=== PATIENT | female | born 1955 | race Caucasian/White ===

== ENCOUNTER 2025-02-25 12:47 | Outpatient (OUT) | payer MEDICAID, SELFPAY ==
--- OUTSIDE RECORDS SUMMARY | 2025-02-25 12:53 | XMS_ITS | Clinical Summary ---
Author Organization [facility] Address [address] [place] [id number] Care Team Providers Care Income Tax Preparer Name Role Phone Yovani Vaughan MD Primary Care Provider [phone] Allergies Active Allergy Reactions Criticality Noted Date Comments Iodine Unknown 11/17/2015 Latex, Natural Rubber Unknown 11/17/2015 Morphine Unknown 11/17/2015 Nsaids (Non-Steroidal Anti-I nflammatory Drug) Unknown 11/17/2015 Sulfa (Sulfonamide Antibiotics) Unknown 11/07 Medications bisacodyl (DULCOLAX) 10 mg supp 10 mg by RECTAL route once daily as needed. Active diphenhydrAMINE (BENADRYL) 25 mg tablet Take 25 mg by mouth every 6 hours as needed. Active LORazepam (ATIVAN) 0.5 mg tab Take by mouth three times daily as needed. Active oxyCODONE 30 mg Tb12 Take 30 mg by mouth. Active polyethylene glycol 3350 (MIRALAX, GLYCOLAX) 17 gram packet Take 17 g by mouth once daily. Active promethazine (PHENERGAN) 25 mg tablet Take 25 mg by mouth every 6 hours as needed. Active GUAIFENESIN/DEX TROMETHORPHAN (ROBITUSSIN-DM ORAL) Take by mouth. Activ e LACTOBACILLUS ACIDOPHILUS (ACIDOPHILUS ORAL) Take by mouth. Activ e allopurinol (ZYLOPRIM) 200 mg tablet [place] [facility] Take 200 mg by mouth once daily. Active interferon beta-1a, albumin, (AVONEX) 30 mcg injection Inject 30 mcg intramuscularly once each week. Active baclofen (LIORESAL) 10 mg tablet Take 10 mg by mouth three times daily. Active cefUROXime (CEFTIN) 500 mg tablet Take 500 mg by mouth twice daily. Active docusate sodium (COLACE) 100 mg capsule Take 100 mg by mouth twice daily. Active DULoxetine (CYMBALTA) 60 mg capsule Take 60 mg by mouth once daily. Active fentaNYL (DURAGESIC) 75 mcg/hr Apply 1 Patch as directed every 72 hours. Active ferrous sulfate 325 mg (65 mg iron) tablet Take 325 mg by mouth daily with breakfast. Active fluticasone (FLONASE) 50 mcg/actuation nasal spray Use 1 [place] in each nostril once daily. Activ e gabapentin (NEURONTIN) 100 mg capsule Take 100 mg by mouth three times daily. Active sitaGLIPtin (JANUVIA) 25 mg tablet Take 25 mg by mouth once daily. Active LACTULOSE, FOR ENCEPHALOPATHY, 10 G/15 ML ORAL SOLN Active levETIRAcetam (KEPPRA) 250 mg tablet Take 250 mg by mouth twice daily. Active metoprolol succinate ER (TOPROL XL) 25 mg 24 hr tablet Take 25 mg by mouth once daily. Active omeprazole (PRILOSEC) 20 mg capsule Take 20 mg by mouth once daily. Active OXcarbazepine (TRILEPTAL) 150 mg tablet Take 150 mg by mouth twice daily. Active POTASSIUM CHLORIDE ORAL Take by mouth. A ctive primidone (MYSOLINE) 50 mg tablet Take 50 mg by mouth four times daily. Active propafenone SR (RYTHMOL SR) 325 mg 12 hr capsule Take 325 mg by mouth twice daily. Active B COMPLEX & C NO.20/FOLIC ACID (NEPHROCAPS ORAL) Take by mouth. Activ e simvastatin (ZOCOR) 10 mg tablet Take 10 mg by mouth daily at bedtime. Active torsemide (DEMADEX) 20 mg tablet Take 20 mg by mouth once daily. Active traZODone (DESYREL) 50 mg tablet Take 50 mg by mouth daily at bedtime. Active ergocalciferol, vitamin D2, (DRISDOL) 50,000 unit capsule Take 50,000 Units by mouth once each week. Active rivaroxaban (XARELTO) 20 mg tablet Take 20 mg by mouth daily with dinner. Active albuterol (PROVENTIL) 2.5 mg /3 mL (0.083 %) nebulizer solution Use 2.5 mg via nebulizer. Active INSULIN GLARGINE,HUM.RE C.ANLOG (LANTUS SUBCUTANEOUS) Inject subcutaneously. 58 units subq every morning and at bedtime Active INSULIN ASPART (NOVOLOG SUBCUTANEOUS) Inject subcutaneously. Sliding scale with meals for blood sugar Active DEXTRAN 70/HYPROMELLOSE (ARTIFICIAL TEARS, PF, OPHTHALMIC) Use in eyes. Activ e guaiFENesin-dex tromethorphan (ROBITUSSIN DM) 100-10 mg/5 mL syrup Take 5 mL by mouth three times daily as needed. Active benzocaine-ment hol (CEPACOL) 15-3.6 mg lozg Use 1 Lozenge as instructed every 2 hours as needed. Active diltiazem CD (CARDIZEM CD, CARTIA XT) 240 mg 24 hr capsule Take 240 mg by mouth once daily. Active lurasidone (LATUDA) 80 mg tablet Take by mouth. Activ e linaclotide 145 mcg cap Take by mouth. Activ e lactulose (DUPHALAC, CONSTULOSE) 20 gram/30 mL solution Take 20 g by mouth three times daily. Active white petrolatum-mine ral oil (EUCERIN) cream Apply to affected area as needed. Active fluocinonide (LIDEX) 0.05 % ointment Apply to affected area twice daily. Active lidocaine-prilo janice (EMLA) cream Apply to affected area as needed. Active Menthol-Zinc Oxide (CALMOSEPTINE) 0.44-20.6 % Apply to affected area. Active tolnaftate (TINACTIN) 1 % cream Apply to affected area twice daily. Active NEOMYCIN LEE/BACITRAC ZN/POLY (TRIPLE ANTIBIOTIC TOPICAL) Apply to affected area. Active Active Problems Problem Noted Date Diagnosed Date Secondary polycythemia 11/22/2015 Polycythemia 11/22/2015 Social History Tobacco Use Types Packs/Day Years Used Date Smoking Tobacco: Never Smokeless Tobacco: Never Alcohol Use Standard Drinks/Week Comments No 0 (1 standard drink = 0.6 oz pur e alcohol) Comments No Sex and Gender Information Value Date Recorded Sex Assigned at Not on file Legal Sex Female 10:29 AM EST Gender Identity Not on file Sexual Orientation Not on file Last Filed Vital Signs Vital Sign Reading Time Taken Comments Blood Pressure 104/68 11/22/2015 3:21 PM EDT Pulse 74 11/22/2015 3:21 PM EDT Temperature 37.3 C (99.2 F) 11/22/2015 3:21 PM EDT Respiratory Rate 18 11/22/2015 3:21 PM EDT Oxygen Saturation - - Inhaled Oxygen Concentration - - Weight - - Height - - Body Mass Index - - Plan of Treatment Health Maintenance Due Date Last Done Comments Anxiety Screening 1971 Depression Screening 1971 Hepatitis C Screening 1971 DTaP,Tdap,Td Vaccine (1 - Tdap) [address] Colonography 1998 Cologuard (FIT-DNA) 1998 Colonoscopy 1998 Colorectal Cancer Screening 1998 Fecal Occult Blood 1998 Lipid Screening 1998 Sigmoidoscopy 1998 Pneumococcal Vaccine: 50+ (1 of 1 - PCV) 2003 Shingrix Vaccine (1 of 2) 2003 Diabetes Screening 04/08/2017 04/08/2014 Bone Density Screening 2018 Advance Directive Discussion 06/09/2024 Influenza Vaccine (#1) 2025 RSV Vaccine (1 - 1-dose 75+ series) 2028 Procedures Procedure Name Priority Date/Time Associated Diagnosis Comments HEMOGLOBIN A1C Routine 04/08/2014 4:16 PM EDT Anemia, unspecified from Last 3 Months or Most Recently Relevant to Health Maintenance Results * (ABNORMAL) HGB A1C (04/08/2014 4:16 PM EDT) Hemoglobin A1C 9.4(H) 4.0 - 6.0 % [facility] Comment: [place] Diabetes Association guidelines indicate that patients with HgbA1c in the range 5.7-6.4% are at increased risk for development of diabetes, and intervention by lifestyle modification may be beneficial. HgbA1c greater or equal to 6.5% is considered diagnostic of diabetes. Estimated Average Glucose 223 mg/dL [facility] Comment: eAG: (Estimated average glucose) is a calculated value from HgbA1c and is distribution sales representative of the average blood glucose level in the last 2-3 month period. Blood specimen (specimen) BLOOD SPECIMEN / Unknown 04/08/2014 4:16 PM EDT 04/08/2014 4:18 PM EDT us Charles D Virgieapua PA-C LABORATORY Final Resul t [facility] [id number] [place] [address] from Last 3 Months or Most Recently Relevant to Health Maintenance Insurance MEDICAID [place] Care Teams Income Tax Preparer Relationship Specialty Start Date End Date Yovani Vaughan MD PCP - General Family Medicine 03/11/14
--- OUTSIDE RECORDS SUMMARY | 2025-02-25 12:53 | XMS_ITS | Clinical Summary ---
Author Organization [id number] [address] [place] [address] Care Team Providers Care Cake Puller Name Role Phone Mendoza Zazueta MD Primary Care Provider [phone] Allergies Active Allergy Reactions Criticality Noted Date Comments Beef Containing Products 05/19/2017 Dihydroergotamine 04/10/2017 Iodine 05/14/2014 Latex Rash Low 05/14/2014 Morphine 09/04/2020 Nsaids (Non-Steroidal Anti-Inflammatory Drug) 05/16/2017 Opioids - Morphine Analogues Anxiety,GI Disturbance,Other (See Comments),Shortnes s Of Breath High 05/13/2014 Pt says she also gets nightmares, hallucinations, and gets loopy . Pantoprazole 04/10/2017 Butorphanol Tartrate 04/10/2017 Sulfasalazine 05/14/2014 Tolmetin 09/13/2015 Medications docusate sodium (COLACE) 100 mg capsuleIndicati ons:constipatio n Take 1 capsule (100 mg total) by mouth in the morning. Indications: constipation. Active dilTIAZem LA (CARDIZEM LA) 240 mg 24 hr tablet Take 1 tablet (240 mg total) by mouth in the morning. Active simethicone (MYLICON) 80 mg chewable tablet Chew 1 tablet (80 mg total) and swallow every 6 (six) hours as needed for flatulence (for gas pain). Active insulin glargine (LANTUS) 100 unit/mL injectionIndica tions:type 2 diabetes mellitus Inject 0.48 mL (48 Units total) under the skin in the morning. Indications: type 2 diabetes mellitus. Active rivaroxaban (XARELTO) 20 mg tablet tablet Take 1 tablet (20 mg total) by mouth once daily at bedtime. Active simvastatin (ZOCOR) 10 mg tablet Take 1 tablet (10 mg total) by mouth nightly. Active levETIRAcetam (KEPPRA) 250 mg tablet Take 2 tablets (500 mg total) by mouth in the morning. Active allopurinol (ZYLOPRIM) 100 mg tablet Take 2 tablets (200 mg total) by mouth in the morning. Active OXcarbazepine (TRILEPTAL) 150 mg tablet Take 1 tablet (150 mg total) by mouth in the morning. Active baclofen (LIORESAL) 10 mg tablet Take 1 tablet (10 mg total) by mouth nightly. Active lactulose (CHRONULAC) 10 gram/15 mL solution Take 30 mL (20 g total) by mouth in the morning. Active lurasidone (LATUDA) 80 mg tablet Take 40 mg by mouth in the morning. Active polyethylene glycol (GLYCOLAX) 17 gram/dose powderIndicatio ns:constipation Take 17 g by mouth in the morning and 17 g before bedtime. Indications: constipation. Active primidone (MYSOLINE) 50 mg tablet Take 2 tablets (100 mg total) by mouth 5 (five) times a day. Active propafenone SR (RYTHMOL SR) 325 mg 12 hr capsule Take 1 capsule (325 mg total) by mouth in the morning and 1 capsule (325 mg total) before bedtime. Active diphenhydrAMINE (SOMINEX) 25 mg tablet Take 1 tablet (25 mg total) by mouth every 6 (six) hours as needed for itching. Active bisacodyl (BISCOLAX) 10 mg suppository Insert 1 suppository (10 mg total) into the rectum as needed for constipation. Active benzocaine-ment hol (CEPACOL SORE THROAT) 15-2.6 mg lozenge Dissolve 1 lozenge in the mouth every 2 (two) hours as needed. Active promethazine (PHENERGAN) 12.5 mg tablet Take 1 tablet (12.5 mg total) by mouth every 4 (four) hours as needed for nausea or vomiting. Active dextran 70/hypromellose (ARTIFICIAL TEARS,[id number] PRO, OPHT) Instill to eye. Act catar[place] interferon beta-1a (AVONEX) 30 mcg/0.5 mL pen injector Inject 30 mcg into the appropriate muscle once a week. On Fri Active calcitriol (ROCALTROL) 0.25 MCG capsule Take 1 capsule (0.25 mcg total) by mouth. TAKING 1 CAPSULE THREE TIMES A WEEK (Fri and Fri) Active ALPRAZolam (XANAX) 0.25 mg tablet Take 1 tablet (0.25 mg total) by mouth in the morning. Active hypromellose (GENTEAL MILD OPHT) Instill 1 drop to eye 3 (three) times a day. Active cholecalciferol , vitamin D3, (VITAMIN D3 ORAL) Take 1,000 Unit by mouth once a week. On Fri, Fri, Fri Active acetaminophen (TYLENOL) 325 mg tabletIndicatio ns:fever Take 2 tablets (650 mg total) by mouth every 6 (six) hours as needed for fever (Temp greater than 101F) Indications: fever. Active albuterol (PROVENTIL,VENT LASHELL) 2.5 mg /3 mL (0.083 %) nebulizer solutionIndicat ions:chronic obstructive pulmonary disease Inhale 3 mL (2.5 mg total) by nebulization every 4 (four) hours as needed for wheezing or shortness of breath Indications: chronic obstructive pulmonary disease. Active amantadine (SYMMETREL) 100 mg capsule Take 1 capsule (100 mg total) by mouth in the morning and 1 capsule (100 mg total) before bedtime. Dx Dyskinesia. Active amitriptyline (ELAVIL) 25 mg tabletIndicatio ns:anxiety,depr ession,insomnia Take 1 tablet (25 mg total) by mouth nightly Indications: anxious, depression, difficulty sleeping. Active amLODIPine (NORVASC) 5 mg tabletIndicatio ns:hypertension Take 2 tablets (10 mg total) by mouth in the morning. Indications: high blood pressure. Active baclofen (LIORESAL) 10 mg tablet Take 0.5 tablets (5 mg total) by mouth in the morning. Active calcium carbonate (OS-LAKEISHA) 500 mg elemental (1,250 mg) chewable tablet Chew 2 tablets (1,000 mg total) and swallow every 6 (six) hours as needed for indigestion. Active carbidopa-levod opa (SINEMET) 25-100 mg per tablet Take 1 tablet by mouth in the morning and 1 tablet at noon and 1 tablet in the evening and 1 tablet before bedtime. For Multiple Scerlosis . Active DICLOFENAC SODIUM TOP Apply 1 Squirt topically every 12 (twelve) hours as needed (pain). Active diphenhydrAMINE (BENADRYL) 50 mg capsule Take 1 capsule (50 mg total) by mouth once daily at bedtime. May continue prn order Active mineral oil (FLEET) enemaIndication s:constipation Insert 133 mL into the rectum daily as needed for constipation Indications: constipation. Insert application rectally every 24 hours as needed for constipation day 5 No bowel movement after glycerin rectal suppository, give fleet enema rectally times 1 dose. Notify MD if fleet enema not effective Active glycerin, laxative, adult, suppositoryIndi cations:constip ation Insert 1 suppository into the rectum as needed (constipation) Indications: constipation. Insert 1 unit rectally every 24 hours as needed for constipation if no results from Milk of mag Active guaiFENesin (ROBITUSSIN) 100 mg/5 mL syrupIndication s:cough Take 20 mL (400 mg total) by mouth every 6 (six) hours as needed for cough Indications: cough. Active hydrALAZINE (APRESOLINE) 25 mg tablet Take 1 tablet (25 mg total) by mouth every 8 (eight) hours as needed (SBP >150 or DBP >90). Active insulin glargine (LANTUS) 100 unit/mL injectionIndica tions:type 2 diabetes mellitus Inject 0.2 mL (20 Units total) under the skin nightly Indications: type 2 diabetes mellitus. Active lidocaine (XYLOCAINE) 2 % jelly Apply 1 Application topically every 4 (four) hours as needed for pain. Apply to tongue topically every 4 hrs prn for sores on tongue Active magnesium hydroxide 400 mg/5 mL suspensionIndic ations:constipa tion Take 30 mL by mouth daily as needed (for constipation) Indications: constipation. Give 30cc by mouth every 24 hours as needed for constipation Day 3 without BM Active coal tar (NEUTROGENA T-GEL) 0.5 % shampoo Apply 1 Application topically once a week. Apply to scalp topically every night custodian on Mon and Thur for itchy scalp Active pimavanserin (NUPLAZID) 34 mg capsule Take 1 capsule (34 mg total) by mouth every other day. Active nystatin (MYCOSTATIN) powder Apply 1 Application topically as needed (axilla, groin, folds). Active OXcarbazepine (TRILEPTAL) 150 mg tablet Take 2 tablets (300 mg total) by mouth once daily at bedtime. Active chlorhexidine (PERIDEX) 0.12 % solution Apply 15 mL to the mouth or throat 3 (three) times a day as needed for wound care. Swish and spit Active tiZANidine (ZANAFLEX) 4 mg tablet Take 1 tablet (4 mg total) by mouth every 8 (eight) hours as needed for muscle spasms. Active traMADoL (ULTRAM) 50 mg tablet Take 2 tablets (100 mg total) by mouth every 6 (six) hours. Active triamcinolone (KENALOG) 0.5 % cream Apply 1 Application topically in the morning and 1 Application before bedtime. Apply to affected area topically as needed for rash bid. Active VITAMIN B COMPLEX ORAL Take 1 tablet by mouth in the morning. Active ALPRAZolam (XANAX) 0.5 mg tablet Take 1 tablet (0.5 mg total) by mouth nightly. Active sennosides-docu sate sodium (SENOKOT-S) 8.6-50 mg Take 1 tablet by mouth every 12 (twelve) hours as needed for constipation. Active Active Problems Problem Noted Date Diagnosed Date Seizure 11/03/2024 Small bowel obstruction 11/02/2024 Hypertension 07/03/2017 SOB (shortness of breath) 07/03/2017 Generalized abdominal pain 05/08/2017 Morbid obesity due to excess calories 04/10/2017 Diabetes Atrial fibrillation COPD (chronic obstructive pulmonary disease) Obesity (BMI 30.0-34.9) Resolved Problems Problem Noted Date Diagnosed Date Resolved Date Incisional hernia, without o bstruction or gangrene 04/10/2017 05/08/2017 Hernia of anterior abdominal wall 04/10/2017 05/08/2017 Family History Medical History Relation Name Comments Cancer Daughter OVARIAN Diabetes Father Diabetes Mother Anesthesia problems Neg Hx Relation Name Status Comments Daughter Father Mother Social History Tobacco Use Types Packs/Day Years Used Date Smoking Tobacco: Never Smokeless Tobacco: Never Tobacco Cessation:Counseling Given: Not Answered Alcohol Use Standard Drinks/Week Comments No 0 (1 standard drink = 0.6 oz pur e alcohol) [facility] Utilities Answer Date Recorded In the past 12 months has th e electric, gas, oil, or water company threatened to shut off services in your home? No 11/02/2024 PRAPARE - Transportation Answer Date Re corded In the past 12 months, has l ack of transportation kept you from medical appointments or from getting medications? No 10/08 In the past 12 months, has l ack of transportation kept you from meetings, work, or from getting things needed for daily living? No 11/02/2024 Housing Instability Answer Date Recorde d Are you worried or concerned that in the next two months you may not have stable housing that you own, rent or stay in as a part of a household? No 11/02/2024 Childcare Answer Date Recorded Childcare Unknown 11/09/2018 Employment Answer Date Recorded Employment Unknown 11/09/2018 Hunger Screening Answer Date Recorded Within the past 12 months we worried whether our food would run out before we got money to buy more. Patient unable to answer 11/03/2024 Within the past 12 months th e food we bought just didn't last and we didn't have money to get more. Patient unable to answer 11/03/2024 Purpose - Life Answer Date Recorded Purpose and direction in life Unknown Comments No Sex and Gender Information Value Date Recorded Sex Assigned at Not on file Legal Sex Female 11:27 AM EDT Gender Identity Not on file Sexual Orientation Not on file Last Filed Vital Signs Vital Sign Reading Time Taken Comments Blood Pressure 159/89 11/06/2024 12:12 PM EDT Pulse 106 11/06/2024 12:12 PM EDT Temperature 36.8 C (98.2 F) 11/06/2024 12:00 PM EDT Respiratory Rate 16 11/06/2024 12:1 2 PM EDT Oxygen Saturation 93% 11/06/2024 12: 12 PM EDT Inhaled Oxygen Concentration - - Weight 86.1 kg (189 lb 14.4 oz) 11/05/2024 5:00 AM EDT Height 167.6 cm (5' 6 ) 11/02/2024 2:50 PM EDT Body Mass Index 30.65 11/02/2024 2:50 PM EDT Plan of Treatment Health Maintenance Due Date Last Done Comments Diabetic Ophthalmology Exam 1955 Statin Use: Diabetic 1955 Depression Screening 1965 Adult BMI Follow Up Plan 1971 Diabetic Foot Exam 1971 DTaP,Tdap and Td Vaccines (1 - Tdap) 1972 Zoster (Shingles) Vaccine (1 of 2) 2003 Fall Risk Screening 2018 Colonoscopy 05/23/2020 05/23/2017 COVID-19 Vaccine (6 - 2024-2 6 season) 2025 03/21/2022, 12/18/2021, 03/28/2021, Additional history exists Influenza Vaccine 02/07/2025 03/10/2012, 03/22/2009 Tobacco Screening 11/04/2025 11/04/2024 Adult BMI Screening 11/05/2025 11/05/2024 Goals Goal Patient Goal Type Associated Problems Recent Progress Patient-Stated? Author return to [facility] Yes Belkis Nagy LSW Note: Evaluation of progress towards goal: under assessment, has NG Medical Devices Not on file Procedures Procedure Name Priority Date/Time Associated Diagnosis Comments COLONOSCOPY 05/23/2017 11:45 AM EST from Last 3 Months or Most Recently Relevant to Health Maintenance Results * Colonoscopy (05/23/2017 11:45 AM EST) 05/23/2017 11:4 5 AM EST [facility] CARDIOVASCULAR - 05/23/2017 1:02 PM EST [facility] Patient Name: Judy Murray Procedure Date: 05/23/2017 11:45 AM Date of : 1955 Admit Type: Outpatient Age: 62 Room: [place] [address] Gender: Female Note Status: Finalized Attending MD: Jamison Quick MD Procedure: Colonoscopy Indications: See Dictation in [facility] Providers: Jamison Quick MD Referring MD: Requesting Provider: Medicines: See Dictation in [facility] Complications: See Dictation in [facility] Procedure: After I obtained informed consent, the scope was passed under direct vision. Throughout the procedure, the patient's blood pressure, pulse, and oxygen saturations were monitored continuously. The Colonoscope was introduced through the anus and advanced to the terminal ileum, with identification of the appendiceal orifice and IC valve. See Dictation in [facility] The quality of the bowel preparation was inadequate. Findings: See Dictation in [facility] Recommendation: - See Dictation in [facility] - Repeat colonoscopy see dictation in [facility] see dictation in [facility]. MD Jamison Noyola MD 05/23/2017 1:02:04 PM This report has been signed electronically. Number of Addenda: 0 Note Initiated On: 05/23/2017 11:45 AM Procedure Note Jamison Quick MD - 05/23/2017 [facility] Patient Name: Judy Murray Procedure Date: 05/23/2017 11:45 AM Date of : 1955 Admit Type: Outpatient Age: 62 Room: [place] [address] Gender: Female Note Status: Finalized Attending MD: Jamison Quick MD Procedure: Colonoscopy Indications: See Dictation in [facility] Providers: Jamison Quick MD Referring MD: Requesting Provider: Medicines: See Dictation in [facility] Complications: See Dictation in [facility] Procedure: After I obtained informed consent, the scope was passed under direct vision. Throughoutthe procedure, the patient's blood pressure,pulse, and oxygen saturations were monitored continuously. The Colonoscope was introduced through the anus and advanced to theterminal ileum, with identification of theappendiceal orifice and IC valve. [facility] wasinadequate. Findings: See Dictation in [facility] Recommendation: - See Dictation in [facility] - [facility]. MD Jamison Noyola MD 05/23/2017 1:02:04 PM This report has been signed electronically. Number of Addenda: 0 Note Initiated On: 05/23/2017 11:45 AM Jamison Quick MD GI PROCEDURE ORDERABLES Brynn l Result PM CARDIOVASCULAR from Last 3 Months or Most Recently Relevant to Health Maintenance Insurance MEDICAID [place] Advance Directives * Full Code (Latest Code Status on File) Date Activated Date Inactivated Comments 11/02/2024 2:54 PM 11/06/2024 5:59 PM Care Teams Cake Puller Relationship Specialty Start Date End Date Mendoza Zazueta MD [address] [facility] [address] [place] [address] PCP - General Internal Medicine 11/02/24
--- OUTSIDE RECORDS SUMMARY | 2025-02-25 12:53 | XMS_ITS | Encounter Summary ---
Author Organization [facility] Address [address] [place] [address] Care Team Providers Care Pricer Name Role Phone Reinaldo Zuniga MD Unavailable [phone] Encounter Details Date Type Department Care Team ([facility] Contact Info) Description 03/30/2024 Abstract [facility] [address] [facility] [address] [place] [address] Unallocated, Noms MD Javi [address] [place] [address] Social History Tobacco Use Types Packs/Day Years Used Date Smoking Tobacco: Never Smokeless Tobacco: Never Alcohol Use Standard Drinks/Week Comments Never 0 (1 standard drink = 0.6 oz pur e alcohol) Comments Unknown Sex and Gender Information Value Date Recorded Sex Assigned at Not on file Legal Sex Female 6:56 PM EDT Gender Identity Not on file Sexual Orientation Not on file documented as of this encounter Plan of Treatment Upcoming Encounters Date Type Department Care Team ([facility] Contact Info) Description 08/30/2025 10:00 AM EDT Office Visit [facility] [address] [place] [phone] Reinaldo Zuniga MD [address] [place] [address] documented as of this encounter Visit Diagnoses Not on filedocumented in this encounter Care Teams Pricer Relationship Specialty Start Date End Date Reinaldo Zuniga MD [address] [place] [address] PCP - FFS State [facility] 06/09/24 documented as of this encounter
--- OUTSIDE RECORDS SUMMARY | 2025-02-25 12:53 | XMS_ITS | Encounter Summary ---
Author Organization [facility] Address [address] [place] [address] Care Team Providers Care Paper Roll Machine Operator Name Role Phone Reinaldo Zuniga MD Unavailable [phone] Encounter Details Date Type Department Care Team ([facility] Contact Info) Description 02/26/2024 Orders Only [facility] [address] [place] [phone] Reinaldo Zuniga MD [address] [place] [address] Social History Tobacco Use Types Packs/Day Years [...] Upcoming Encounters Date Type Department Care Team ([facility] Contact Info) Description 08/30/2025 10:00 AM EDT Office Visit [facility] [address] [place] [phone] Reinaldo Zuniga MD [address], [address] [place] [address] documented as of this encounter Procedures Procedure Name Priority Date/Time Associated Diagnosis Comments GENERAL PATHOLOGY Routine 02/05/2024 10:09 AM EDT GENERAL PATHOLOGY Routine 02/05/2024 10:08 AM EDT PATHOLOGY REPORT Routine 02/05/2024 10:04 AM EDT PATHOLOGY REPORT Routine 02/05/2024 10:03 AM EDT PT AND PTT Routine 02/03/2024 9:34 AM EDT EQUAL MIX, PT / INR Routine 02/03/2024 9:34 AM EDT documented in this encounter Results * GENERAL PATHOLOGY (02/05/2024 10:09 AM EDT) Thony Rolon Satinder DO [facility] Final Resul t * GENERAL PATHOLOGY (02/05/2024 10:08 AM EDT) Thony Rajan DO [facility] Final Resul t * Pathology Report (02/05/2024 10:04 AM EDT) Other Thony Rajan DO LAB PATHOLOGY ORDERABLES Fi nal Result * Pathology Report (02/05/2024 10:03 AM EDT) Other Thony Rajan DO LAB PATHOLOGY ORDERABLES Fi nal Result * Pt and ptt (02/03/2024 9:34 AM EDT) Blood Venous blood specimen / Unknown us Reinaldo Zuniga MD LAB BLOOD ORDERABLES Final Re sult * Equal mix, PT / INR (02/03/2024 9:34 AM EDT) Blood Venous blood specimen / Unknown us Reinaldo Zuniga MD LAB BLOOD ORDERABLES Final Re sult documented in this encounter Visit Diagnoses Not on filedocumented in this encounter Care Teams Paper Roll Machine Operator Relationship Specialty Start Date End Date Reinaldo Zuniga MD [address] [place] [id number] PCP - FFS State [employer] 06/09/24 documented as of this encounter
--- OUTSIDE RECORDS SUMMARY | 2025-02-25 12:53 | XMS_ITS | Clinical Summary ---
Author Organization [facility] Address [address] [place] [address] Care Team Providers Care Press Tender Long Goods Name Role Phone Reinaldo Zuniga MD Unavailable [phone] Allergies Active Allergy Reactions Criticality Noted Date Comments Butorphanol 04/10/2017 Dihydroergotamine 04/10/2017 Iodinated Contrast Media Unknown 02/03/2024 Iodine Unknown 05/14/2014 Latex Rash,Unknown Low 05/14/2014 Morphine Unknown 11/17/2015 Nsaids Unknown 02/11/2024 Pantoprazole 04/10/2017 Sulfa Antibiotics Unknown 11/17/2015 Medications lurasidone (Latuda) 40 MG tablet Take 1 tablet by mouth in the morning. Take with meals. 4 Active allopurinol (Zyloprim) 100 MG tablet Take 1 tablet by mouth Daily 4 Active propafenone SR (Rythmol SR) 325 MG 12 hr capsule Take 1 capsule by mouth in the morning and 1 capsule before bedtime. 4 Active acetaminophen (Tylenol) 325 MG tablet Take 650 mg by mouth every 6 (six) hours if needed Active dilTIAZem CD (Cardizem CD) 240 MG 24 hr capsule Take 240 mg by mouth in the morning. 4 Active OXcarbazepine (Trileptal) 150 MG tablet Take 1 tablet by mouth in the morning and 1 tablet before bedtime. 1 in AM and 2 PM. 4 Active carbidopa-levo dopa (Sinemet) 25-100 MG tablet Take 1 tablet by mouth in the morning and 1 tablet at noon and 1 tablet in the evening and 1 tablet before bedtime. 4 Active ALPRAZolam (Xanax) 0.5 MG tablet Take 1 tablet by mouth 2 (two) times a day as needed for anxiety 4 Active levETIRAcetam (Keppra) 500 MG tablet Take 1 tablet by mouth in the morning and 1 tablet before bedtime. 4 Active promethazine (Phenergan) 12.5 MG tablet Take 12.5 mg by mouth every 6 (six) hours if needed Active hydrALAZINE (Apresoline) 10 MG tablet Take 1 tablet by mouth Daily 4 Active rivaroxaban (Xarelto) 20 MG tablet Take 1 tablet by mouth in the evening. Take with meals 4 Active simvastatin (Zocor) 10 MG tablet Take 1 tablet by mouth at bedtime 4 Active simethicone (Mylicon) 80 MG chewable tablet Chew 80 mg every 6 (six) hours if needed Active primidone (Mysoline) 50 MG tablet Take 1 tablet by mouth if needed 4 Active Lantus SoloStar 100 UNIT/ML pen Inject 20 Units under the skin at bedtime 4 Active albuterol (2.5 MG/3ML) 0.083% nebulizer solution Inhale 0.5 mL every 6 (six) hours if needed for shortness of breath or wheezing Active Docusate Sodium (DSS) 100 MG capsule Take 1 capsule by mouth Daily as needed 4 Active cholecalcifero l (Vitamin D-3) 25 MCG (1000 UT) capsule Take 1 capsule by mouth Daily Active tiZANidine (Zanaflex) 4 MG tablet Take 1 tablet by mouth every 8 (eight) hours if needed for muscle spasms Active amantadine (Symmetrel) 100 MG capsule Take 100 mg by mouth 1 (one) time each day Active ALPRAZolam (Xanax) 0.25 MG tabletIndicati ons:Anxiety Take 1 tablet (0.25 mg) by mouth Daily 30 tablet 5 Active ALPRAZolam (Xanax) 0.5 MG tabletIndicati ons:Anxiety Take 1 tablet (0.5 mg) by mouth at bedtime 30 tablet 5 Active Additional Information Patient not taking.Reported on 08/31/2024 ALPRAZolam (Xanax) 0.5 MG tabletIndicati ons:Anxiety Take 1 tablet (0.5 mg) by mouth at bedtime 30 tablet 3 5 03/29/20 25 Active ALPRAZolam (Xanax) 0.5 MG tabletIndicati ons:Anxiety Take 0.5 tablets (0.25 mg) by mouth Daily 30 tablet 1 5 03/29/20 25 Active traMADol (Ultram) 50 MG tabletIndicati ons:Chronic pain syndrome Take 2 tablets (100 mg) by mouth every 6 (six) hours 240 tablet 5 03/02/20 25 Active traMADol (Ultram) 50 MG tabletIndicati ons:Chronic pain syndrome Take 2 tablets (100 mg) by mouth every 6 (six) hours 240 tablet 5 02/01/20 25 Discontin ued(Reord er) Encounters Date Type Department Care Team Description 01/31/2025 [facility] [address] [facility] [address] [place] [phone] Elyse Riley, KENNY 01/03/2025 Telephone [facility] [address] [facility] [address] [place] [address] Elyse Riley, KENNY 12/12/2024 Telephone [facility] [address] [facility] [address] [place] [address] Elyse Riley, KENNY 11/29/2024 Telephone [facility] [address] [facility] [address] [place] [phone] Elyse Riley, BRANCH CONTROLLER from Last 3 Months Immunizations Immunization Administration Dates Next Due Influenza Whole 03/22/2009 Influenza, seasonal, injectable 03/10/2012 Family History Medical History Relation Name Comments Diabetes Mother Relation Name Status Comments Father Mother Social History Tobacco Use Types Packs/Day Years Used Date Smoking Tobacco: Never Smokeless Tobacco: Never Tobacco Cessation:Counseling Given: No Alcohol Use Standard Drinks/Week Comments Never 0 (1 standard drink = 0.6 oz pur e alcohol) Comments Unknown Sex and Gender Information Value Date Recorded Sex Assigned at Not on file Legal Sex Female 6:56 PM EDT Gender Identity Not on file Sexual Orientation Not on file Last Filed Vital Signs Vital Sign Reading Time Taken Comments Blood Pressure 154/95 08/31/2024 10:07 AM EDT Pulse 79 08/31/2024 10:07 AM EDT Temperature - - Respiratory Rate 18 08/31/2024 10:07 AM EDT Oxygen Saturation 97% 08/31/2024 10:07 AM EDT Inhaled Oxygen Concentration - - Weight 88.7 kg (195 lb 8 oz) 08/31/2024 10:07 AM EDT Height 165.1 cm (5' 5 ) 08/31/2024 10:07 AM EDT Body Mass Index 32.53 08/31/2024 10:07 AM EDT Plan of Treatment Upcoming Encounters Date Type Department Care Team (Late st Contact Info) Description 08/30/2025 10:00 AM EDT Office Visit [facility] [address] [place] [phone] Reinaldo Zuniga MD [address] [place] [address] Health Maintenance Due Date Last Done Comments CT Colonography 1955 Colonoscopy 1955 Colorectal Cancer Screening 1955 FIT-DNA 1955 FIT 1955 FOBT 1955 Sigmoidoscopy 1955 Diabetes: Retinopathy Screening 1963 Pneumococcal Vaccine: 65+ Ye ars (1 of 2 - PCV) 1972 Mammogram 08/06/2013 08/06/2012, 06/22/2012 Diabetes: Urine Protein Screening 10/27/2021 10/27/2020, 10/09/2020, 06/05/2020, Additional history exists Diabetes: Hemoglobin A1C 02/03/2025 025, 01/10/2020, 02/15/2019, Additional history exists Influenza Vaccine (#1) 2025 03/10/2012, 2008 Procedures Procedure Name Priority Date/Time Associated Diagnosis Comments HEMOGLOBIN A1C (GLYCO-HGB) Routine 02/10/2018 from Last 3 Months or Most Recently Relevant to Health Maintenance Results * HEMOGLOBIN A1C (GLYCO-HGB) (02/10/2018) HGB A1C 6.0 4.4 - 6.4 [facility] AVERAGE GLUCOSE 126 [facility] Comment:PERFORMED AT [address] [place] [address] 02/10/2018 us Mendoza Zazueta MD [facility] Final Result [facility] from Last 3 Months or Most Recently Relevant to Health Maintenance Insurance [facility] [place] [address] MEDICAID [place] Care Teams Press Tender Long Goods Relationship Specialty Start Date End Date Reinaldo Zuniga MD [address] [place] [address] PCP - FFS State [facility] 06/09/24
--- OUTSIDE RECORDS SUMMARY | 2025-02-25 12:53 | XMS_ITS | Encounter Summary ---
Author Organization [facility] Address [address] [address] Care Team Providers Care Tobacco Cloth Reclaimer Name Role Phone Reinaldo Zuniga MD Unavailable [phone] Encounter Details Date Type Department Care Team (Late Contact Info) Description 02/06/2024 Abstract [facility] [address] [place] [address] Unallocated, Noms MD Javi [address] [place] [address] Social History Tobacco Use Types Packs/Day Years Used Date Smoking Tobacco: Never Assessed Comments Unknown Sex and Gender Information Value Date Recorded Sex Assigned at Not on file Legal Sex Female 6:56 PM EDT Gender Identity Not on file Sexual Orientation Not on file documented as of this encounter Plan of Treatment Upcoming Encounters Date Type Department Care Team (Late Contact Info) Description 08/30/2025 10:00 AM EDT Office Visit [facility] [address] [place] [phone] Reinaldo Zuniga MD [address] [place] [address] documented as of this encounter Visit Diagnoses Not on filedocumented in this encounter Care Teams Tobacco Cloth Reclaimer Relationship Specialty Start Date End Date Reinaldo Zuniga MD [address] [place] [address] PCP - FFS State [facility] 06/09/24 documented as of this encounter
--- OUTSIDE RECORDS SUMMARY | 2025-02-25 12:53 | XMS_ITS | Encounter Summary ---
Author Organization [facility] Address [address] [place] [address] Care Team Providers Care Cattle Dipper Name Role Phone Reinaldo Zuniga MD Unavailable [phone] Encounter Details Date Type Department Care Team ([facility] Contact Info) Description 04/22/2023 Abstract [facility] [address] [address] [place] [address] Mendoza Zazueta MD [address] [place] [address] Social History Tobacco Use Types Packs/Day Years [...] Visit [facility] [address] [place] [address] Reinaldo Zuinga MD [address] [place] [address] documented as of this encounter Visit Diagnoses Not on filedocumented in this encounter Care Teams Cattle Dipper Relationship Specialty Start Date End Date Reinaldo Zuniga MD [address] [place] [address] PCP - FFS State [facility] 06/09/24 documented as of this encounter
--- OUTSIDE RECORDS SUMMARY | 2025-02-25 12:53 | XMS_ITS | Clinical Summary ---
Author Organization [facility] Address [address] [place] [address] Care Team Providers Care Die Keeper Name Role Phone Yovani Vaughan MD Primary Care Provider [phone] Allergies Active Allergy Reactions Criticality Noted Date Comments Iodine Low 05/14/2014 Latex Rash Low 05/14/2014 Morphine And Codeine Shortness Of Breath,Nausea And Vomiting,Anxiety,Othe r (See Comments) High 05/13/2014 Pt says she also gets nightmares, hallucinations, and gets loopy . Nsaids 09/13/2015 Other 08/10/2015 IV dye Sulfa Antibiotics Low 05/14/2014 Medications propafenone (RYTHMOL SR) 325 MG SR capsule Take 325 mg by mouth 2 times daily. Active baclofen (LIORESAL) 10 MG tablet Take 10 mg by mouth 4 times daily. Active diltiazem (CARDIZEM CD) 240 MG ER capsule Take 240 mg by mouth daily. Active gabapentin (NEURONTIN) 100 MG capsule Take 100 mg by mouth 3 times daily. Active metoprolol (LOPRESSOR) 50 MG tablet Take 50 mg by mouth 2 times daily. Active oxyCODONE (OXY-IR) 30 MG immediate release tablet Take 30 mg by mouth every 6 hours as needed for Pain. Active sitaGLIPtin (JANUVIA) 25 MG tablet Take 25 mg by mouth daily. Active omeprazole (PRILOSEC) 20 MG capsule Take 20 mg by mouth daily. Active simvastatin (ZOCOR) 10 MG tablet Take 10 mg by mouth nightly. Active OXcarbazepine (TRILEPTAL) 150 MG tablet Take 150 mg by mouth 2 times daily. Active fentaNYL (DURAGESIC) 75 MCG/HR Place 1 patch onto the skin every 72 hours. Active docusate sodium (COLACE) 100 MG capsule Take 100 mg by mouth 3 times daily. Active polyethylene glycol (GLYCOLAX) powder Take 17 g by mouth daily as needed. Active DULoxetine (CYMBALTA) 60 MG capsule Take 60 mg by mouth daily. Active bisacodyl (DULCOLAX) [address] 10 mg rectally daily as needed for Constipation. Active aspirin 325 MG tablet Take 325 mg by mouth daily. Active lurasidone (LATUDA) 40 MG TABS tablet Take 80 mg by mouth daily. Active potassium chloride SA (K-DUR;KLOR-CON M) 10 MEQ tablet Take 20 mEq by mouth daily MONDAYS AND THURSDAYS Active potassium chloride SA (K-DUR;KLOR-CON M) 10 MEQ tablet Take 20 mEq by mouth daily Active b rigwric-X-itnco acid (NEPHROCAPS) 1 MG capsule Take 1 capsule by mouth daily. Active primidone (MYSOLINE) 50 MG tablet Take 50 mg by mouth 3 times daily. Active rivaroxaban (XARELTO) 20 MG TABS tablet Take 1 tablet by mouth daily. 30 tablet 0 05/19/20 14 Active insulin glargine (LANTUS) 100 UNIT/ML injection vial Inject 60 Units into the skin 2 times daily. 1 vial 3 05/19/20 14 Active Additional Information Patient taking differently: 58 UnitsSubCUTAneousNIGHTLY, Informant: Facility, Reported on 09/18/2015 insulin lispro (HUMALOG) 100 UNIT/ML injection vial Inject 0-18 Units into the skin 3 times daily (with meals). 1 vial 3 05/19/20 14 Active Additional Information Patient taking differently: (No dose reported), SubCUTAneous SEE ADMIN INSTRUCTIONS, ADMINISTER SUB-Q PER SLIDING SCALE WITH MEALS:SLIDING SCALE:BS 70-139= 0 UNITSBS 140-199=3 UNITSBS 200-249= 6 UNITSBS 250-299= 9 UNITSBS 300-349= 12 UNITSBS 350-400= 15 UNITS, Informant: Facility, Reported on 09/18/2015 hydroxypropyl methylcellulose (GONIOSOL) 2.5 % ophthalmic solution Place 1 drop into both eyes as needed for Dry Eyes. 1 Bottle 0 05/19/20 14 Active allopurinol (ZYLOPRIM) 100 MG tablet Take 100 mg by mouth daily Active ferrous sulfate 325 (65 FE) MG tablet Take 325 mg by mouth 2 times daily Active FLUTICASONE FUROATE NA 2 sprays by Nasal route daily Active levETIRAcetam (KEPPRA) 250 MG tablet Take 250 mg by mouth 2 times daily Active linaclotide (LINZESS) 145 MCG capsule Take 145 mcg by mouth every morning (before breakfast) Active torsemide (DEMADEX) 20 MG tablet Take 20 mg by mouth daily Active vitamin D (CHOLECALCIFEROL) 1000 UNIT TABS tablet Take 1,000 Units by mouth daily Active Hypromellose (ARTIFICIAL TEARS OP) Apply to eye as needed Active diphenhydrAMINE (BENADRYL) 25 MG capsule Take 25 mg by mouth every 6 hours as needed for Itching Active Dextromethorphan-gu aiFENesin 10-100 MG/5ML SYRP Take 5 mLs by mouth every 6 hours as needed for Cough Active benzocaine-menthol (CEPACOL SORE THROAT) 15-3.6 MG lozenge Take 1 lozenge by mouth Every 2-3 hrs as needed Active Pollen Extracts (PROSTAT PO) Take 30 mLs by mouth daily Active Interferon Beta-1a (AVONEX PREFILLED IM) Inject 30 mcg into the muscle once a week Active albuterol (PROVENTIL) (2.5 MG/3ML) 0.083% nebulizer solution Take 2.5 mg by nebulization every 4 hours as needed for Wheezing Active Clotrimazole-Betame thasone (LOTRISONE EX) Apply topically 2x daily as needed Active dermacerin (EUCERIN) CREA cream Apply topically as needed Active fluocinonide (LIDEX) 0.05 % cream Apply topically 2 times daily Apply topically 2 times daily. Active nystatin (MYCOSTATIN) 024533 UNIT/GM powder Apply topically as needed Apply topically 4 times daily. Active Menthol-Zinc Oxide (CALMOSEPTINE EX) Apply topically To vaginal folds every 4 hrs and as needed Active tolnaftate (TINACTIN) 1 % cream Apply topically 2 times daily Apply topically 2 times daily. Active triamcinolone (KENALOG) 0.1 % cream Apply topically 2 times daily Apply topically daily. Active LORazepam (ATIVAN) 0.5 MG tablet Take 0.5 mg by mouth every 6 hours as needed for Anxiety Active insulin glargine (LANTUS) 100 UNIT/ML injection vial Inject 58 Units into the skin every morning Active lactulose (CHRONULAC) 10 GM/15ML solution Take 30 g by mouth 3 times daily Active Specialty Vitamins Products (PROSTATE PO) Take 30 mLs by mouth daily Active traZODone (DESYREL) 50 MG tablet Take 50 mg by mouth nightly Active promethazine (PHENERGAN) 12.5 MG tablet Take 12.5 mg by mouth every 8 hours as needed for Nausea Active Pollen Extracts (PROSTAT PO) Take 30 mLs by mouth daily Active Probiotic Product (PROBIOTIC ACIDOPHILUS) CAPS Take 1 tablet by mouth daily 30 capsule 3 10/17/19 16 Active lidocaine-prilocain e (EMLA) 2.5-2.5 % cream Apply topically daily in am 30 g 5 10/17/19 16 Active fluticasone (FLONASE) 50 MCG/ACT nasal spray 1 spray Active Active Problems Problem Noted Date Diagnosed Date Vaginal pain 09/22/2015 Morbid obesity 08/10/2015 Multiple sclerosis 05/14/2014 Chronic low back pain 05/14/2014 Paraparesis 05/14/2014 Seizure disorder 05/14/2014 Multiple sclerosis exacerbation Resolved Problems Problem Noted Date Diagnosed Date Resolved Date Lower urinary tract infectious disease 05/14/2014 05/19/2014 Overview (02/13/2015): replace inactive diagnosis Family History Medical History Relation Name Comments Hearing Loss Brother Arthritis Mother Diabetes Mother High Blood Pressure Mother Relation Name Status Comments Brother Mother Social History Tobacco Use Types Packs/Day Years Used Date Smoking Tobacco: Never Smokeless Tobacco: Never Alcohol Use Standard Drinks/Week Comments No 0 (1 standard drink = 0.6 oz pur e alcohol) Comments No Sex and Gender Information Value Date Recorded Sex Assigned at Not on file Legal Sex Female 10:53 AM EST Gender Identity Not on file Sexual Orientation Not on file Last Filed Vital Signs Vital Sign Reading Time Taken Comments Blood Pressure 128/70 10/01/2016 2:30 PM EDT Pulse 82 04/25/2016 10:58 AM EST Temperature 36.4 C (97.6 F) 09/22/2015 12:33 PM EDT Respiratory Rate 18 04/25/2016 10:58 AM EST Oxygen Saturation 93% 09/22/2015 1:30 PM EDT Inhaled Oxygen Concentration - - Weight 92.1 kg (203 lb) 10/01/2016 2:30 PM EDT Height 165.1 cm (5' 5 ) 10/01/2016 2:30 PM EDT Body Mass Index 33.78 10/01/2016 2:30 PM EDT Plan of Treatment Not on file [place]ives * Full Code (Latest Code Status on File) Date Activated Date Inactivated Comments 05/13/2014 9:38 PM 05/19/2014 5:05 PM Care Teams Die Keeper Relationship Specialty Start Date End Date Yovani Vaughan MD PCP - General 09/15/15
--- OUTSIDE RECORDS SUMMARY | 2025-02-25 12:53 | XMS_ITS | Encounter Summary ---
Author Organization [facility] Address [address] [place] [address] Care Team Providers Care Fabrication Engineer Name Role Phone Reinaldo Zuniga MD Unavailable [phone] Encounter Details Date Type Department Care Team ([facility] Contact Info) Description 08/06/2023 Abstract [facility] [address] [place] [address] Mendoza Zazueta MD [address] [place] [address] Social History Tobacco Use Types Packs/Day Years [...] Visit [facility] [address] [place] [address] Reinaldo Zuniga MD [address] [place] [address] documented as of this encounter Visit Diagnoses Not on filedocumented in this encounter Care Teams Fabrication Engineer Relationship Specialty Start Date End Date Reinaldo Zuniga MD [address] [place] [address] PCP - FFS State [facility] 06/09/24 documented as of this encounter
--- NOTE | 2025-02-25 13:00 | MR_ITS ---
The [address] [address] Patient Name: SARAHY LAM MRN: [id number] date: 1955 Sex: F Assigned Patient Location: MRI Current Patient Location: MRI Accession/Order Number: [id number] Exam Date: 02/25/2025 13:10 Report Date: 02/25/2025 18:36 At the request of: KAVEH HAYNES NP Procedure: MR head/brain wo con EXAMINATION: MRI OF THE BRAIN WITHOUT CONTRAST CLINICAL HISTORY: Multiple Sclerosis COMPARISON: None TECHNIQUE: Multiecho, multiplanar imaging of the brain was performed without contrast FINDINGS: No restricted diffusion. Moderate generalized involutional changes with prominence of the ventricles and sulci. No shift midline structure. Basal cisterns are patent. Moderate burden of nonspecific T2 FLAIR hyperintensities identified within the periventricular, subcortical and pontine white matter. Intracranial arterial vascular flow voids preserved. No abnormal GRE signal. Mild ethmoid sinus thickening. IMPRESSION: Moderate central involutional changes with moderate burden of nonspecific T2 FLAIR signal. Appearance may favor chronic microvascular changes. However if there is persistent or continued clinical concern, follow-up maybe beneficial. Otherwise negative acute intracranial process by MRI. Impression dictated by: Ángel Petit M.D. 02/25/2025 6:36 PM Dictation Location: [place] [address] Electronically authenticated by: [id number] Date: 02/25/2025 18:36
== END 2025-02-25 12:48 | disposition home or self-care (01) ==
PROVIDERS: PCP Family Medicine; Visit Provider Nurse Practitioner Family
DX: G35 Multiple sclerosis (principal)
CPT/HCPCS: 70551